=== PATIENT | female | born 1950 | race Caucasian/White ===

== ENCOUNTER 2022-03-16 11:24 | Day surgery (SDC) | payer MEDICARE, SELFPAY ==
[2022-03-16] MEDS: Lactated Ringers 1,000 ML 100 ML IVCONT (11:45)
[2022-03-16 12:07] VITALS: BMI 29.5
[2022-03-16 12:08] VITALS: BP 127/79; PULSE 94; RESP 18; TEMP 36.6; O2SAT 98
--- NOTE | 2022-03-16 12:17 | P.CONAN_ITS ---
[facility] Active Problems Active Problems: All Active Problems (Updated 03/15/22 @ 08:32 by Danielle Palmer RN) Scabies (Acute) Past Medical History Medical History Gallstones HTN (hypertension) Hyperlipidemia Hypothyroidism Macular degeneration Pancreatitis Family History Family history of problems with anesthesia: No Surgical History Surgical History History of cholecystectomy History of tonsillectomy History of Problems with Anesthesia: No Social History Social History Patient Tobacco Use Status: Former Tobacco user Are you DNR?: No Advance Directives: No Advance Directives Information Provided: Yes Nutrition Risks: No Nutritional Risk Meds Allergies Allergy/AdvReac Type Severity Reaction Status Date / Time erythromycin base Allergy Unknown Verified 03/16/22 11:27 Active Medications: Current Medications Lactated Ringer's (Lr) 1,000 mls @ 100 mls/hr IVCONT .Q10H ERIK Last Admin: 03/16/22 11:45 Dose: 100 mls/hr Sodium Biphosphate/Sodium Phosphate (Sodium Phosphate,Cannon-Dibasic 133 Ml Enema) 133 ml NV ONCE PRN PRN Reason: Poor Colonoscopy Prep Results Home Medications Medication Instructions Recorded Confirmed Last Taken Type felodipine 5 mg tablet,extended 5 mg PO DAILY 04/06/20 Unknown History release 24 hr flaxseed oil 1,000 mg capsule 1,000 mg PO DAILY 04/06/20 Unknown History levothyroxine 137 mcg capsule 137 mcg PO DAILY 04/06/20 Unknown History vitamin B complex (Super B-50 1 cap PO DAILY 04/06/20 Unknown History Complex capsule) Exam Exam Date and Time: March 16, 2022 1217 Height,Weight and Vital Signs: Height 5 ft 6 in Weight 83.007 kg Last Vital Signs Temp 97.9 F 03/16/22 12:08 Pulse 94 03/16/22 12:08 Resp 18 03/16/22 12:08 BP 127/79 03/16/22 12:08 Pulse Ox 98 03/16/22 12:08 O2 Del Method 03/16/22 12:08 Airway Mallampati Class: II TM Dist: >3cm Neck ROM: Full Loose/Missing/Broken Teeth: No Heart: rrr Lungs: cta Assessment and Plan Assessment Anesthesia Assessment: Anesthesia Plan Discussed and Chart Reviewed Final Anesthetic Review Family History of Problems with Anesthesia: No History of Problems with Anesthesia: No NPO: Yes ASA Class: II Final Preanesthetic Review: No Changes in Pt Med Stat, Meds/Allgs Chart Reviewed, Consent Obtained/Reviewed and Anes Risks/Benef Reviewed Procedure Risk: Low Anesthetic Plan Anesthetic Plan: MAC: and Agree w/ Assess. and Plan Disposition: Standard PACU
--- NOTE | 2022-03-16 13:23 | PM.OP ---
Brief Operative Note Date of Service: 03/16/22 Pre-op diagnosis: Screening Post-op diagnosis: other (Diverticulosis) Procedure: Colonoscopy to the cecum and TI Surgeon: Kyle Ann Anesthesia: MAC Was an Aircraft Ordnance Technician used for this Procedure?: No Estimated blood loss (mL): 0 Pathology: none sent Condition: stable Disposition: PACU
[2022-03-16 13:24] VITALS: BP 104/68; PULSE 100; RESP 16; TEMP 36.4; O2SAT 99
--- NOTE | 2022-03-17 01:01 | OP_ITS ---
SURGEON: Kyle Ann MD INDICATIONS: The patient presents for evaluation of colon cancer screening. Full consent has been obtained from her for this, including risks of bleeding and perforation. PREOPERATIVE DIAGNOSIS: Colon cancer screening. POSTOPERATIVE DIAGNOSIS: PROCEDURE PERFORMED: Colonoscopy to the cecum and terminal ileum. ESTIMATED BLOOD LOSS: COMPLICATIONS: ANESTHESIA: Medication used, monitored anesthesia care. ASSISTANTS: SPECIMENS: POSTOPERATIVE DIAGNOSES: Colon cancer screening, diverticulosis, and internal hemorrhoids. DESCRIPTION OF PROCEDURE: The patient was placed in the left lateral decubitus position. The digital rectal exam revealed no abnormalities. The Olympus video pediatric colonoscope was entered into the rectum and advanced easily to the cecum. Once in the cecum, I did identify normal-appearing cecal pouch with appendiceal orifice and a normal-appearing ileocecal valve. The terminal ileum was cannulated and appeared normal. The scope was withdrawn back in the colon. The entire cecum and ileocecal valve appeared normal. The scope was then slowly withdrawn assessing all mucosal surfaces carefully. Preparation was excellent. I did not visualize any other polyps, colitis, or angiodysplasia. There was a moderate amount of sigmoid diverticulosis. In the rectum, the scope was retroflexed visualizing internal hemorrhoids, but no other pathology. The rectal mucosa appeared normal. Scope was straightened and withdrawn from the patient. She tolerated the procedure well and was returned to recovery area in stable condition. IMPRESSION: 1. Diverticulosis. 2. Internal hemorrhoids. 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 I do not think she will need any further screening colonoscopies at this point. As such, she will see me on a p.r.n. basis. MD CARLI Campos/VASU / [id number] MTDD
== END 2022-03-16 14:01 | disposition home or self-care (01) ==
PROVIDERS: PCP Nurse Practitioner Family; Visit Provider Internal Medicine
PROC: 0DJD8ZZ Inspection of Lower Intestinal Tract, Via Natural or Artificial Opening Endoscopic (ICD-10-PCS; CPT 45378; principal; 2022-03-16 12:40)
DX: Z12.11 Encounter for screening for malignant neoplasm of colon (principal); K57.30 Diverticulosis of large intestine without perforation or abscess without bleeding; K64.8 Other hemorrhoids; I10 Essential (primary) hypertension; E78.5 Hyperlipidemia, unspecified; E03.9 Hypothyroidism, unspecified; H35.30 Unspecified macular degeneration; Z79.899 Other long term (current) drug therapy; Z88.1 Allergy status to other antibiotic agents; Z90.49 Acquired absence of other specified parts of digestive tract; Z87.891 Personal history of nicotine dependence
CPT/HCPCS: G0121